=== PATIENT | male | born 1960 | race Caucasian/White ===

== ENCOUNTER 2024-07-14 22:22 | Emergency (ER) | payer OTHER, SELFPAY ==
[2024-07-14 22:24] VITALS: BP 128/93
[2024-07-15 00:37] LABS: % Basophils 0.3 % (0-2); % Immature Granulocytes 0.5 % (0-0.5); % Lymphocytes 3.6 % (20.5-51.1); % Monocytes 4.2 % (1.7-9.3); % Neutrophils 91.4 % (42.2-75.2); Absolute Immature Granulocytes 0.1 10^3/uL (0-0.05); Absolute Lymphocytes 0.4 10^3/uL (1.2-3.4); Absolute Monocytes 0.5 10^3/uL (0.1-0.6); Absolute Neutrophils 10.5 10^3/uL (1.4-6.5); Hematocrit 40.4 % (39.0-52.0); Mean Corp Hgb Conc. 34.7 g/dL (33.0-37.0); Mean Corpuscular Hgb 29.8 pg (27.0-31.0); Mean Platelet Volume 9.7 fL (7.4-10.4); Nucleated Red Blood Cells % 0 % (-); Platelet Count 152 10^3/uL (130-400); Red Cell Dist. Width 12.7 % (11.5-14.5); White Blood Cell Count 11.5 10^3/uL (4.8-10.8)
[2024-07-15 00:39] VITALS: BMI 26.9
[2024-07-15] MEDS: TYLENOL 1000 MG PO (00:49)
[2024-07-15 00:52] LABS: ALT (SGPT) 52 U/L (0-50); AST (SGOT) 49 U/L (17-59); Albumin 3.9 g/dl (3.5-5.0); Alkaline Phosphatase 54 U/L (38-126); Blood Urea Nitrogen 22 mg/dl (9-20); Carbon Dioxide 23 mmol/L (22-30); Chloride 102 mmol/L (98-107); Estimated Creatinine Clearance 108 ml/min; Glucose 135 mg/dl (70-99); Potassium 3.6 mmol/L (3.5-5.1); Sodium 131 mmol/L (135-145); Total Bilirubin 1.6 mg/dl (0.2-1.3); Total Protein 6.2 g/dl (6.3-8.2); eGFR > 60.00
[2024-07-15 00:54] LABS: Lactic Acid 0.8 mmol/L (0.7-2.0)
--- NOTE | 2024-07-15 00:54 | ED.GENMED ---
History of Present Illness
General
Chief Complaint: Skin Surface Trauma
Source: patient and previous hospital records (ED visit 2016 with somewhat similar complaint)
Exam Limitations: none
Time Seen by Provider: 07/15/24 00:30
Nursing documentation reviewed up to this point in time: agreed with
History of Present Illness
History of Present Illness:
This is a 63-year-old gentleman with history of melanoma excision from dorsal left foot as well as benign lymph node excision left groin 2014. He has history of left lower extremity cellulitis after lymph node biopsy with last episode of cellulitis
2015.
He notes mild discomfort left posterior medial calf yesterday but then this morning noticed a small scabbed lesion left posterior calf with surrounding erythema that has gotten progressively worse throughout the day with lymphangitis to his left
posterior medial mid thigh as well as onset of fever tonight. He did take a dose of ibuprofen just prior to arrival.
He denies groin pain, no pain or swelling to his lower leg nor foot. No weakness or numbness. No abdominal pain, no nausea or vomiting. No headache, no neck nor back pain.
Past History
Past History
ED Past Medical History: Other (melanoma; cellulitis left lower extremity)
ED Past Surgical History: Orthopedic
Social History
Tobacco: Non-smoker
Alcohol: None
Drug: None
Living: with family
Employment: Employed
Family History
Family History: Other (Noncontributory)
Phy Exam
Physical Exam
Physical Exam:
GENERAL: 63-year-old gentleman appears his stated age, bright alert, pleasant, appears in no acute distress. Oral temperature now 102.5 �F.
EYE: anicteric
NECK: Supple, nontender, no meningismus, no significant adenopathy.
ENT: oral mucosa is moist. No rhinorrhea.
CARDIAC: Regular rate and rhythm. no murmur.
LUNGS: Clear breath sounds bilaterally, no acute respiratory distress, no wheezes/rales/rhonchi
ABDOMEN: Soft, nondistended, without focal tenderness, no r/g, no cvat. normoactive BS.
NEUROLOGICAL: Alert and oriented x3, no focal neuro deficits.
SKIN: Mildly hot to touch and dry, normal color. Left posterior calf has a pinpoint scabbed area with surrounding area of erythema approximately 8 cm x 6 cm with lymphangitis extending to the mid aspect of the posterior medial thigh. There is a
firm nontender mobile lymph node left groin which patient states is chronic and unchanged. There is no inguinal tenderness nor inguinal erythema. Mild focal tenderness to the left posterior calf at area of erythema but no focal soft tissue
swelling nor palpable firmness nor fluctuance.
MUSCULOSKELETAL: No C/C/E. peripheral pulses are full and equal b/l.
PSYCH: Normal and appropriate interaction.
Course
Orders/Labs/Results
Orders:
Orders
07/15/24 00:11
Electrocardiogram (*1) Urgent
Reason for Study: Other
Other Reason for Exam: Possible Sepsis
Cardiac Monitoring- Treatment ONCE
IV Insert/Care/Rem.- Treatment PRN
Straight cath- Treatment ONCE
O2 Therapy [RESP] Urgent
Titrate/Wean O2 to maintain O2 sat greater than (%): 93
Special Instructions: TO MAINTAIN CONTINUOUS O2 SATS > OR = 93%
Pulse Ox/cont/shift [RESP] Urgent
Quantity: 1
Special Instructions: CONTINUOUS
07/15/24 00:28
Complete Blood Count/With Diff Urgent
Comprehensive Metabolic Panel Urgent
Lactic Acid Q4H
Comment: ON ICE, CANCEL 2ND ORDER IF FIRST LACTIC ACID LEVEL <2
07/15/24 00:34
Urinalysis Reflex To Culture Urgent
Date Specimen was Collected: 07/15/24
Time Specimen was Collected: 00:11
Urine Microscopic Reflex Cult Urgent
Blood Culture Urgent
GEO Source: Blood/Venous
Specimen Description:
Date Specimen was Collected: 07/15/24
Time Specimen was Collected: 00:29
Urine Culture Urgent
GEO Source: U
Specimen Description:
Date Specimen was Collected: 07/15/24
Time Specimen was Collected: 00:11
07/15/24 00:36
Acetaminophen [Tylenol] 1,000 mg .ROUTE .STK-MED ONE
07/15/24 00:49
Acetaminophen [Tylenol] 1,000 mg PO NOW STA
07/15/24 00:51
Vancomycin [Vancocin] 2,000 mg 0.9% Sodium Chloride 500 ml [Nss] 500 ml IV NOW
07/15/24 00:53
Blood Culture Urgent
GEO Source: Blood/Venous
Specimen Description:
Date Specimen was Collected: 07/15/24
Time Specimen was Collected: 00:52
07/15/24 01:05
Lactate Level [Lactic Acid] Urgent
Comment: .
07/15/24 01:45
US Periph Venous LOWER Ext LT Urgent
Comment:
Reason For Exam: left calf pain, swelling redness-to thigh
07/15/24 02:09
Vancomycin [Vancocin] 2,000 mg 0.9% Sodium Chloride 500 ml [Nss] 500 ml IV NOW
Abnormal Lab Results
07/15/24 07/15/24
00:28 00:34
WBC 11.5 H 10^3/uL
(4.8-10.8)
Abs Immat Gran (auto) 0.1 H 10^3/uL
(0-0.05)
Absolute Neuts (auto) 10.5 H 10^3/uL
(1.4-6.5)
Absolute Lymphs (auto) 0.4 L 10^3/uL
(1.2-3.4)
Neutrophils % 91.4 H %
(42.2-75.2)
Lymphocytes % 3.6 L %
(20.5-51.1)
Sodium 131 L mmol/L
(135-145)
BUN 22 H mg/dl
(9-20)
Glucose 135 H mg/dl
(70-99)
Total Bilirubin 1.6 H mg/dl
(0.2-1.3)
ALT 52 H U/L
(0-50)
Total Protein 6.2 L g/dl
(6.3-8.2)
Ur Occult Blood Reflex 1+ A
(Negative)
Leukocyte Esterase Rfl 1+ A
(Negative)
Urine Albumin (Reflex) 2+ A
(Neg - Trace)
07/15/24 00:28
07/15/24 00:28
Vital Signs
Initial and Last Documented VS:
Initial Vital Signs
Temp Pulse Resp BP Pulse Ox
99.3 F 120 20 128/93 99
07/14/24 22:24 07/14/24 22:24 07/14/24 22:24 07/14/24 22:24 07/14/24 22:24
Last Documented Vital Signs
Temp Pulse Resp BP Pulse Ox
98.4 F 71 20 118/66 96
07/15/24 04:25 07/15/24 04:25 07/15/24 04:25 07/15/24 04:25 07/15/24 04:25
MDM/Problems Addressed
Differential Diagnosis Includes:
History and exam consistent with cellulitis and I suspect originated at site of focal pinpoint abrasion left posterior calf.
He does have history of left inguinal lymph node biopsy with previous episodes of cellulitis left lower leg. Other than this no other definitive risk factors for immunocompromise.
He is noted to be significantly febrile at 102.5 but otherwise hemodynamically stable. Concern for early sepsis.
Labs are pending, will check lactic acid, blood cultures.
Will ultrasound left lower extremity assess for potential subcu gas, DVT.
Will initiate IV vancomycin for coverage of potential MRSA.
Chronic conditions affecting care: Cancer (Melanoma removal left dorsal foot with inguinal lymph node biopsy 2014)
*Radiology
Radiology exam reviewed: other (Ultrasound left lower extremity negative for DVT.)
*Pulse Oximetry
Patient hypoxic: no
*Critical Care Note
Total Time (30-74mins, 75-104mins- exclusive of procedures): Not Applicable
Update Note
Update Note:
04:45
Patient feeling well.
Fever has dissipated.
No advancement in erythema of the leg.
Labs reveal mildly elevated white blood cell count of 11.5. Lactic acid is normal. Chemistries are unremarkable.
He has received an IV dose of vancomycin.
Eager to be discharged to home and reports no previous episodes of cellulitis requiring hospitalization.
Will discharge to home with 10-day course of Keflex as well as Bactrim for potential MRSA coverage.
Recommend he elevate his leg, local heat, continue Tylenol versus ibuprofen as needed for pain, fever.
Follow-up with PCP for recheck.
Strict return precautions discussed.
ED Attending Note
-
Portions of this chart may have been created with voice recognition software.� Occasional wrong word or��sound alike� substitutions may have occurred due to the inherent limitations of voice recognition software.
Discharge Plan
Departure
Patient Disposition: Home (Routine Discharge)
Date of Disposition: 07/15/24
Time of Disposition: 04:51
Patient with high blood pressure during this ER visit?: No
Condition: Good
Discharge Problem:
Cellulitis of left lower extremity
Instructions: Cellulitis (skin infection) in adults - ED discharge instructions
Prescriptions:
New
cephalexin 500 mg capsule
1,000 mg PO BID 10 Days Qty: 40 0RF
sulfamethoxazole-trimethoprim [Bactrim DS] 800-160 mg tablet
1 tab PO BID Qty: 20 0RF
No Action
sulfamethoxazole-trimethoprim 1 TABLET tablet
1 tab PO BID Qty: 20 0RF
cefadroxil [Duricef] 500 MG capsule
500 mg PO BID Qty: 20 0RF
Referrals:
Bonifacio James MD [Family Provider] - Call in 1-3 days for appt
Interventions
Interventions:
*Risk Screen - Suicide Last Done: 07/15/24 00:43
*General Assessment Last Done: 07/15/24 00:43
*Neglect/Abuse Screening Last Done: 07/15/24 00:43
ED- Fall Risk Assessment Last Done: 07/15/24 00:43
*ED COVID-19 Vaccine History Last Done: 07/15/24 00:42
ED-Skin Assessment Last Done: 07/15/24 00:43
Discharge Date and Time
Print Language: OMANI
[2024-07-15 01:13] LABS: Urine Albumin 2+ (Neg - Trace); Urine Bilirubin Negative (Negative); Urine Character Clear (Clear); Urine Color Yellow; Urine Glucose Negative (Negative); Urine Ketone Negative (Negative); Urine Leukocyte 1+ (Negative); Urine Nitrite Negative (Negative); Urine Occult Blood 1+ (Negative); Urine Specific Gravity 1.015 (<1.030); Urine Urobilinogen 1+ (Neg - 1+); Urine pH 6.5 (5.0-9.0)
[2024-07-15 01:24] LABS: Urine Red Blood Cell 0-2 /HPF (0-2)
[2024-07-15 01:26] LABS: Lactic Acid 0.8 mmol/L (0.7-2.0)
[2024-07-15 01:32] VITALS: BP 106/70
[2024-07-15 02:00] VITALS: BP 103/68
[2024-07-15] MEDS: VANCOCIN 540 MG IV (02:25)
[2024-07-15 02:31] VITALS: BP 103/68
[2024-07-15 03:00] VITALS: BP 106/71
[2024-07-15 04:02] VITALS: BP 118/66
[2024-07-15 04:25] VITALS: BP 118/66
== END 2024-07-15 05:36 | disposition home or self-care (01) ==
LOC: EMR 22:22
PROVIDERS: EMERGENCY PHYSICIAN Emergency Medicine; FAMILY PHYSICIAN Family Medicine
DX: L03.116 Cellulitis of left lower limb (principal); Z85.820 Personal history of malignant melanoma of skin
CPT/HCPCS: 99284; 96365; 96366; 80053; 81003; 81015; 83605; 85025; 87040; 87086; 93971